=== PATIENT | female | born 1975 | race African-American/Black ===

== ENCOUNTER 2025-04-19 16:46 | Emergency (ER) | payer OTHER ==
[~2025-04-19] VITALS: Ht 165.1 cm; Wt 79.4 kg
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
[2025-04-19 17:22] VITALS: RESP 18; TEMP 98.4; O2SAT 100
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
[2025-04-19 17:51] VITALS: BP 149/78; PULSE 60
[2025-04-19] MEDS ORDERED: CLON0.1T PO (18:10)
== END 2025-04-19 18:39 | disposition home or self-care (01) ==
LOC: EDH 16:46
DX: G44.309 Post-traumatic headache, unspecified, not intractable (principal); I10 Essential (primary) hypertension; F41.9 Anxiety disorder, unspecified; F32.A Depression, unspecified; Z98.890 Other specified postprocedural states; V43.52XA Car driver injured in collision with other type car in traffic accident, initial encounter; Y93.89 Activity, other specified; Y92.89 Other specified places as the place of occurrence of the external cause; Y99.8 Other external cause status
CPT/HCPCS: 70450; 99284